=== PATIENT | female | born 1970 | race Caucasian/White ===

== ENCOUNTER 2021-06-20 09:59 | Outpatient (CLI) | payer OTHER ==
--- NOTE | 2021-06-20 11:15 | XRay Report ---
LEFT WRIST 4 VIEWS INDICATION / CLINICAL INFORMATION: LEFT WRIST PAIN COMPARISON: None available. FINDINGS: BONES and JOINT(S): No acute fracture or subluxation. No significant arthritis. SOFT TISSUES: No significant abnormality. ADDITIONAL FINDINGS: None. IMPRESSION: No significant abnormality of the left wrist. Signer Name: Everett Shook MD Signed: 06/20/2021 11:04 AM Workstation Name: [id number]
== END 2021-06-20 10:00 | disposition home or self-care (01) ==
LOC: XRAY 09:59
PROVIDERS: ATTEND Internal Medicine
DX: M25.532 Pain in left wrist (principal)